=== PATIENT | female | born 1990 | race Caucasian/White ===

== ENCOUNTER 2016-09-08 21:00 | Emergency (ER) | payer SELFPAY ==
[~2016-09-08 21:00] MED LIST: BACTERICIN14.2 GM TP; CYCLOBENZAPRINE10 M1 PO; CYCLOBENZAPRINE10 MG PO; FERROUS SULFATE1 TAB; HYDROCODON-ACE1 EA16 PO; MOTRIN600 MG PO; NO HOME MEDS; NORCO 5-325 TA1 EACH PO; SILVADENE20 G1 TOP
[2016-09-08] MEDS ORDERED: BACTRIM DS TAB1 EAC2 PO (21:13)
[2016-09-08] MEDS ORDERED: KEFLEX250 M2 PO (21:14)
[2016-09-08] MEDS ORDERED: OXYCODONE-ACET1 EAC3 PO (21:51)
== END 2016-09-08 22:24 ==
LOC: EDMED 21:00
DX: L02.415 Cutaneous abscess of right lower limb (principal); L03.115 Cellulitis of right lower limb